=== PATIENT | male | born 1990 | race Caucasian/White ===

== ENCOUNTER 2019-05-05 08:24 | Outpatient (CLI) | payer OTHER, BC, SELFPAY ==
--- NOTE | ~2019-05-05 | MR_ITS ---
EXAMINATION: MR knee LT wo con DATE: 05/05/2019 09:10 INDICATION: Left knee pain. TECHNIQUE: Magnetic resonance imaging (MRI) of the left knee was performed without intravenous contra st. Sequences included axial PD-weighted FS FSE, coronal PD-weighted FSE and PD-weighted FS FSE, sagi ttal PD-weighted FSE, and sagittal T2-weighted FS FSE. COMPARISON: Left knee radiographs 04/27/2019 FINDINGS: Medial compartment: Medial meniscus is normal. Medial compartment cartilage is normal. Lateral compartment: Lateral meniscus is discoid. Lateral compartment cartilage is normal. Patellofemoral compartment: There is patellar cartilage surface irregularity. Trochlear cartilage is normal. Ligaments and tendons: There is a complete tear of anterior cruciate ligament. Posterior cruciate ligament is normal. Medial collateral ligament is normal. There are changes of prior sprain of fibular collateral ligament luz acterized increased signal intensity proximally. There is mild patellar tendinopathy. Fluid: There is a small knee joint effusion. There is mild prepatellar and superficial infrapatellar bursiti s. IMPRESSION: 1. Complete tear of anterior cruciate ligament. 2. Mild patellar chondrosis. 3. Small knee joint effusion. Reviewed, dictated and finalized at location A. [facility]
== END 2019-05-05 08:25 | disposition home or self-care (01) ==
PROVIDERS: PCP Internal Medicine; Visit Provider Internal Medicine
DX: M25.562 Pain in left knee (principal)
CPT/HCPCS: 73721

== ENCOUNTER 2019-09-10 12:54 | Outpatient (RCR) | payer OTHER, SELFPAY ==
--- NOTE | 2019-09-10 14:07 | PTOPEVAL ---
Thank you for referring Michael Saenz to [facility]. Please review, sign, date and return this plan of care KRISHNA. I agree with and certify that the following plan of care is medically necessary. Referring Physician Date Admitting Provider: Attending Provider: PHYSICIAN NOT ON STAFF Referring Provider: *PT Outpatient Evaluation Start: 09/10/19 13:09 Freq: Status: Active Protocol: Document 09/10/19 13:09 PEPE (Rec: 09/10/19 13:34 PEPE [email or web address]) Therapy Assessment Status Assessment Status Assessment Status Evaluation Evaluation Information Problem Diagnosis left ACL repair Onset 09/07/19 Subjective Information Pt. reports that he initially Query Text:As Reported By Patient/ tore his ACL in February while Family at work. He reports he underwent surgery 3 days ago. He has not been bearing weight as of yet. He reports he did have a nerve block. He reports that pain is minimal currently. He reports 3/10 knee pain. He states that his goal is to return to work and return to walking normal. Prior Level of Function Activity Level (Last 3 Months) Occupation landscaping, [employer] Right Activity of Daily Living Ability Independent Indoor/Home Mobility Independent Community Mobility Independent Stairs Ability Independent Functional Cognition (Planning, Shopping Independent , Taking Medications) Cooking Yes Cleaning Yes Laundry Yes Shopping Yes Driving Yes Pain Assessment Pain Scale Pain Scale Used Numeric (1 - 10) Self Report Pain Assessment Left Knee(s) Reported Pain Level 3 Pain Score Pain Score 3: Self Report Lower Extremity Range of Motion General Lower Extremity Range of Motion Gross Lower Extremity Range of Motion left knee AROM 0-56 degrees Comments Lower Extremity Muscle Strength Testing General Lower Extremity Strength Gross Lower Extremity Strength left hip flexion 4-/5, left hip abduction 3+/5, left knee flexion 3-/5, left knee extension 3-/5, left ankle dorsiflexion 5/5 Extremity Circumference Assessment Circumference Assessment Location Left Site Descriptor ([place]) knee j
--- NOTE | 2019-09-21 16:06 | PCPTNOTE ---
09/21/19 Mr. Saenz presents to therapy this date 2 weeks out from his L ACL reconstruction. He is progressing well with regards to his ROM and ambulation thus far. He now presents with 0-116 degrees AROM L knee mobility. He rates his pain a 4/10 in the L knee this date, and is still under precautions to use a brace on the L knee for ambulation for at least 4 more weeks. He presents with improving quadriceps strength in the L LE this date, but still displays a 5 degree extension lag during SLR performance of the L LE. He ambulates with decreased heel contact of the L LE, decreased atilio/speed, and hesitance during turning. Due to the nature of his injury, surgery performed, increased time post-injury waiting for surgery to be performed (due to covid), and prior level work requirements, he would do well to continue skilled PT for his remaining 8 visits per the initial POC with focus on his ability to return to full work performance and duties when medically cleared. Please feel free to call or email our facility with any additional questions regarding Mr. Saenz's case. Thank you, Robert Higuera DPT
--- NOTE | 2019-10-16 10:46 | PCPTNOTE ---
Mr. Saenz presents to skilled PT this date with increased pain and a sensation of instability in the L knee for about 2 weeks. He has been experiencing these symptoms since the progression to phase 2 of his post-op protocol. Prior to phase 2, Mr. Saenz attained full mobility and adequate strength of the quadriceps to begin closed chain strengthening exercises. However, after progression to phase 2, he began having severe pain (8/10), decreased rom (2-107), and instability while walking (even in his brace). He was regressed in exercises and activities for 2 weeks, and has been responding well with return of normal rom and ambulation mechanics. However, he still presents with swelling and pain in the L knee. This date he presents with improvements in his mobility achieving 0-120 degrees AROM L knee mobility, 1cm girth increase of the L knee jt line compared to the R knee jt line, and deeper squat tolerance/performance. Due to his initial symptoms as few weeks ago, it was suggested he follow up with surgeon's office to evaluate stability and adherence of L ACL reconstruction. Thank you for including our office in the care of Mr. Saenz. Please feel free to contact me with any further questions concerning Mr. Saenz or any other patient/case. Sincerely, Robert Higuera DPT [facility] [phone]
--- NOTE | 2019-10-19 15:53 | PTOPEVAL ---
Thank you for referring Michael Saenz to [facility]. Please review, sign, date and return this plan of care KRISHNA. I agree with and certify that the following plan of care is medically necessary. Referring Physician Date Admitting Provider: Attending Provider: PHYSICIAN NOT ON STAFF Referring Provider: *PT Outpatient Evaluation Start: 09/10/19 13:09 Freq: Status: Active Protocol: Document 10/19/19 15:15 PEPE (Rec: 10/19/19 15:53 PEPE [email or web address]) Therapy Assessment Status Assessment Status Assessment Status Re-evaluation Evaluation Information Problem Diagnosis s/p left ACL reconstruction Onset 09/07/19 Subjective Information Pt. reports that his swelling Query Text:As Reported By Patient/ his decreasing. Family Pain Assessment Pain Scale Pain Scale Used Numeric (1 - 10) Self Report Pain Assessment Left Knee(s) Reported Pain Level 2 Lowest Pain Intensity 2 Greatest Pain Intensity 3 Pain Score Pain Score 2: Self Report Lower Extremity Range of Motion General Lower Extremity Range of Motion Gross Lower Extremity Range of Motion Pt. demonstratse 0-126 degrees Comments left knee AROM Lower Extremity Muscle Strength Testing General Lower Extremity Strength Gross Lower Extremity Strength bialteral hip flexion 5/5, right hip abduction 4+/5, left hip abduction 5/5, right knee flexion 5/5, left knee flexion 4+/5, right knee extension 5/5, left knee extension 4+/5, bilateral ankle dorsiflexion 5/5 Pt. completes single limb leg press test for 1 rep max with 380# on right and 280# on left . Palpation Assessment Palpation Palpation Palpable edema is noted around the area of the left patellofemoral jt. Gait Assessment Gait Assessment Additional Ambulation Comments Pt. ambulates without an AD and no longer donning knee support. He demonstrates slightly decreased left stance time compared to the right. PT Clinical Summary Clinical Summary Protocol: PTEVCODE PT Clinical Summary Pt. has demosntrated progress in regards to strength and ROM . He continues to be limited in strength at the left l.e.
--- NOTE | 2019-11-22 07:19 | PTOPEVAL ---
Thank you for referring Michael Saenz to [facility].? The patient is scheduled to be seen for therapy? ____x/week for ___ weeks. Please review, sign, date and return this plan of care KRISHNA. I agree with and certify that the following plan of care is medically necessary. Referring Physician Date Admitting Provider: Attending Provider: PHYSICIAN NOT ON STAFF Referring Provider: *PT Outpatient Evaluation Start: 09/10/19 13:09 Freq: Status: Active Protocol: Document 11/15/19 17:00 PEPE (Rec: 11/22/19 07:19 PEPE [email or web address]) Therapy Assessment Status Assessment Status Assessment Status Evaluation Evaluation Information Problem Diagnosis s/p left ACL reconstruction Onset 09/07/19 Subjective Information Pt. states that he has Query Text:As Reported By Patient/ returned to work. He states Family that he is on light duty but does not feel limited. He reports that he can complete all required work related duties without complication. He reports that he continues to exercise daily at home. Pt . states that he will return to his doctor in 2-3 weeks, but feels that he is ready for discharge. Pain Assessment Self Report Self Report Pain Level 0 Pain Score Pain Score 0: Self Report Lower Extremity Range of Motion General Lower Extremity Range of Motion Gross Lower Extremity Range of Motion left knee AROM= 0-125 Comments Lower Extremity Muscle Strength Testing General Lower Extremity Strength Gross Lower Extremity Strength Pt. completes single limb leg press test with max weight of 380# on both right and left. left knee flexion strength grades 5/5 and left knee extension strength grades 5/5 Gait Assessment Gait Assessment Additional Ambulation Comments Pt. ambulates over level surface without deviation. General Exercise General Exercises Exercise Description -lunges x 20 Query Text:Record Sets, Reps, -sidestepping with theraband x Resistance, and Position 25' x 4 reps -lateral step ups x 20 -forward step ups x 20 -step downs x 20 -squat side lunges x 20 PT Clinical Summary Clinical Summary Protocol: PTEVCODE PT Clinical Summary Pt. demonstrates no
== END 2019-11-15 18:00 | disposition home or self-care (01) ==
LOC: CHSPT 12:54
DX: S83.512D Sprain of anterior cruciate ligament of left knee, subsequent encounter (principal)
CPT/HCPCS: 97016; 97110; 97112; 97161; 97530

== ENCOUNTER 2019-12-05 08:14 | Outpatient (RCR) | payer OTHER, SELFPAY ==
--- NOTE | 2019-12-05 11:20 | PTOPEVAL ---
Thank you for referring Michael Saenz to [facility].? The patient is scheduled to be seen for therapy? ____x/week for ___ weeks. Please review, sign, date and return this plan of care KRISHNA. I agree with and certify that the following plan of care is medically necessary. Referring Physician Date Admitting Provider: Attending Provider: PHYSICIAN NOT ON STAFF Referring Provider: *PT Outpatient Evaluation Start: 12/05/19 08:15 Freq: Status: Active Protocol: Document 12/05/19 08:16 PEPE (Rec: 12/05/19 09:39 PEPE [email or web address]) Therapy Assessment Status Assessment Status Assessment Status Re-evaluation Evaluation Information Problem Subjective Information Pt. reports that he has Query Text:As Reported By Patient/ returned to work full duty. Family He states that he still has concern with walking over uneven terrain but has no complication with level terrain. He states that his biggest concern is reinjury if he were to step into a hole. He also notes some stiffness with described flexion, but only affects him with kneeling activities. Pain Assessment Self Report Self Report Pain Level 0 Pain Score Pain Score 0: Self Report Lower Extremity Range of Motion General Lower Extremity Range of Motion Gross Lower Extremity Range of Motion right knee AROM= 0-135 Comments left knee AROM= 0-128 Lower Extremity Muscle Strength Testing General Lower Extremity Strength Gross Lower Extremity Strength Pt. demonstrates continued indication of slight weakness of the left l.e. compared to the right as noted by inability to maintain SLS on the left compared to the right on uneven terrain. Gait Assessment Gait Assessment Additional Ambulation Comments Pt. ambulates over level surface without deviation. He is able to navigate steps with reciprical pattern. General Exercise General Exercises Exercise Description -rapid alternating HS curls 3# Query Text:Record Sets, Reps, x 3 minutes Resistance, and Position -eliptical x 10 minutes level 5 -BOSU squats on firm side x 20 -single limb mini squats x 20 -single limb lunge squats x 20
== END 2019-12-28 08:46 | disposition home or self-care (01) ==
LOC: CHSPT 08:14
PROVIDERS: PCP Internal Medicine
DX: S83.512D Sprain of anterior cruciate ligament of left knee, subsequent encounter (principal)
CPT/HCPCS: 97110; 97530

== ENCOUNTER 2020-03-12 13:53 | Outpatient (CLI) | payer BC, SELFPAY ==
[2020-03-12 14:43] LABS: SARS-CoV-2 Ag Negative (Negative)
== END 2020-03-12 13:54 | disposition home or self-care (01) ==
LOC: CHSLAB 13:56
PROVIDERS: PCP Internal Medicine; Visit Provider Internal Medicine
DX: Z20.828 Contact with and (suspected) exposure to other viral communicable diseases (principal)
CPT/HCPCS: 87426

== ENCOUNTER 2024-11-16 08:34 | Emergency (ER) | payer OTHER, SELFPAY ==
--- OUTSIDE RECORDS SUMMARY | 2024-11-16 08:38 | XMS_ITS | Clinical Summary ---
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 Gender Identity Not on file Sexual Orientation Not on file Plan of Treatment Health Maintenance Due Date Last Done Comments Annual Physical 1994 Hepatitis C 2009 DTaP, Tdap and Td Vaccines ( 1 - Tdap) 2010 Hepatitis B Vaccines (1 of 3 - 19+ 3-dose series) 2010 HPV Vaccines (1 - 3-dose SCD M series) 2018 COVID-19 Vaccine ( - 2023-2 5 season) 2023 Meningococcal B Vaccine Aged Out No l onger eligible based on patient's age to complete this topic Meningococcal Vaccine Aged Out No linda jackeline eligible based on patient's age to complete this topic Pneumococcal Vaccine: Pediat rics (0 to 5 Years) and At-Risk Patients (6 to 49 Years) Aged Out No longer eligible b ased on patient's age to complete this topic RSV Immunizations Under 20 Months Aged Out No longer eligible based on patient's age to complete this topic
--- OUTSIDE RECORDS SUMMARY | 2024-11-16 08:38 | XMS_ITS | Clinical Summary ---
Author Organization [facility] Care Team Providers Care Power Press Operator Name Role Phone Unavailable Primary Care Provider Unavailabl e Social History Tobacco Use Types Packs/Day Years Used Date Smoking Tobacco: Never Assessed Sex and Gender Information Value Date Recorded Sex Assigned at Not on file Legal Sex Male 10:50 PM CDT Gender Identity Not on file Sexual Orientation Not on file Plan of Treatment Not on file
--- OUTSIDE RECORDS SUMMARY | 2024-11-16 08:38 | XMS_ITS | Clinical Summary ---
Author Organization [facility] Address [address] [place] [address] Care Team Providers Care Blast Furnace Checker Name Role Phone Wyatt Daugherty MD Primary Care Provider + [phone] Allergies No known active allergies Medications oxyCODONE-aceta minophen (PERCOCET) 5-325 mg per tabletIndicatio ns:Pain TAKE 1-2 TABLETS EVERY 6 HOURS NEEDED FOR PAIN 40 tablet 0 Active Additional Information Patient not taking.Reported on 03/04/2020 HYDROcodone-minoo taminophen (NORCO) 5-325 mg per tabletIndicatio ns:Pain TAKE 1-2 TABLETS EVERY 6 HOURS NEEDED FOR PAIN 15 tablet 0 Active Additional Information Patient not taking.Reported on 03/04/2020 Active Problems Problem Noted Date Diagnosed Date Injury of left knee 06/21/2019 Acute pain of left knee 06/21/2019 Left anterior cruciate ligament tear 06/21/2019 Immunizations Immunization Administration Dates Next Due DTP 06/08/1996, 3,1991,1991,0 1991 Hep A, Pediatric 09/30/2005 Hep B, Adolescent or Pediatric 11/22/2001,2000,06/08/1996 HiB 10/07/1992,1991,1991 ,1991 IPV 06/08/1996, 3,1991,1991,0 1991 MMR 06/08/1996,10/07/1992 Meningococcal C Conjugate 09/30/2005 Td, adsorbed 02/01/2003 Tdap 03/02/2019,09/30/2005 Surgical History Surgery Date Site/Laterality Comments TONSILLECTOMY 04/04/1999 - 04/03/2000 Bilateral Medical History Medical History Date Comments Covid-19 09/04/2019 COVID test done 09/04/2019-->negative 09/05/2019 0825 EE Hyperlipidemia borderline, just monitoring at this time Family History Medical History Relation Name Comments Clotting disorder Father Diabetes Father Gout Father Heart disease Father Hypertension Father Kidney disease Father Diabetes Mother Stroke Mother Relation Name Status Comments Father Mother Social History Tobacco Use Types Packs/Day Years Used Date Smoking Tobacco: Every Day Cigarettes 0.5 15.6 Started: 2009 Smokeless Tobacco: Never Alcohol Use Standard Drinks/Week Comments Yes 0 (1 standard drink = 0.6 oz pur e alcohol) 1-2x/month Personal Safety Answer Date Recorded Getting School Help Needed Not on file 06/16 Sex and Gender Information Value Date Recorded Sex Assigned at Not on file 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 Gender Identity Not on file Sexual Orientation Not on file Obstetrics History Last Filed Vital Signs Vital Sign Reading Time Taken Comments Blood Pressure 117/69 09/07/2019 12:00 PM CDT Pulse 85 09/07/2019 12:05 PM CDT Temperature 36.2 C (97.2 F) 09/07/2019 11:50 AM CDT Respiratory Rate 18 09/07/2019 12:05 PM CDT Oxygen Saturation 96% 09/07/2019 12:05 PM CDT Inhaled Oxygen Concentration - - Weight 116.1 kg (256 lb) 03/04/2020 3:10 PM MANAGER BANK Height 180.3 cm (5' 11) 03/04/2020 3:10 PM MANAGER BANK Body Mass Index 35.7 03/04/2020 3:10 PM MANAGER BANK Plan of Treatment Not on file Medical Devices Implanted Type Area Derrick Boat Lever Operator Device Identifier Shelf Expiration Date Model / Serial / Lot [employer] [id number] Tightrope Acl Right Device Fixation Titanium Uhmwpe Sterile Latex Free - [id number] Implanted:Qty: 1 on 09/07/2019 by Natanael Parsons IV, MD at [facility] Left: Knee [employer] 02/02/2024 [id number] / / [id number] [employer] Ar-[id number]-09 Screw Fastthread Biocomposite Interference 9mm X 30mm - [id number] Implanted:Qty: 1 on 09/07/2019 by Natanael Parsons IV, MD at [facility] Left: Knee [employer] 02/01/2021 AR-4030C-09 / / [id number] Insurance [employer] Top[employer] KIERSTEN HOOPER Care Teams Blast Furnace Checker Relationship Specialty Start Date End Date Wyatt Daugherty MD [address] [place] [address] PCP - General Internal Medicine 05/15/19
[2024-11-16 08:39] VITALS: BP 136/87; PULSE 92; RESP 16; TEMP 36.6; O2SAT 97
--- NOTE | 2024-11-16 08:43 | ED_ITS ---
HPI - Animal Bite General Chief Complaint: Animal Bite Stated Complaint: dog bite Time Seen by Provider: 11/16/24 08:43 Source: patient Mode of arrival: ambulatory Limitations: no limitations History of Present Illness HPI narrative: patient is a 34-year-old male with a left hand dog bite prior to arrival. He was sitting pending his friend's dog and after he pulled his hand away from petting the dog it wanted more attention so it bit his left hand. The dog was pulled away from the hand and left a laceration on the left thumb. Also some puncture wounds on the other part of the hand. Tetanus shot not up-to-date. Pain is sharp. No other injuries. Dog is up-to-date on shots. This was a provoked event. complaint: animal bite and animal-related injury Onset (ago): minute(s) ( Thirty) Animal: dog Description of animal: household pet Mechanism: bite Location - Extremities: Left: hand ( 1 laceration and 3 puncture wounds) Pain description: sharp Severity scale (1-10): 5 Context: playing with animal and provoked Associated symptoms: none Treatments prior to arrival: wound dressing(s) Related Data Patient tetanus UTD: No Home Medications ?Medication ?Instructions ?Recorded ?Confirmed ?Last Taken ?Type amoxicillin 875 mg-potassium 1 tablet PO Q8H 11/16/24 11/16/24 Unknown History clavulanate 125 mg tablet Allergies Allergy/AdvReac Type Severity Reaction Status Date / Time No Known Allergies Allergy Unverified 11/16/24 08:54 Review of Systems Review of Systems: All systems reviewed & are unremarkable except as noted in HPI and below Constitutional: Constitutional: Reports no additional constitutional complaints Eyes: Eyes: Reports no additional eye complaints ENT: Reports system reviewed and no additional complaints, except as documented Cardiovascular: Cardiovascular: Reports no additional cardiovascular complaints Respiratory: Respiratory: Reports no additional respiratory complaints Gastrointestinal: Gastrointestinal: Reports no additional gastrointestinal complaints Genitourinary: Genitourinary: Reports no additional male genitourinary complaints Musculoskeletal: Musculoskeletal: Reports no additional musculoskeletal complaints Integumentary/Breasts: Skin/Breast: Reports system reviewed and no additional complaints, except as docu Neurologic: Reports system reviewed and no additional complaints, except as documented Psychiatric: Psychiatric: Reports no additional psychiatric complaints Endocrine: Endocrine: Reports no additional endocrine complaints Hematologic/Lymphatic: Hematologic/Lymphatic: Reports no additional hematologic/lymphatic complaints Allergic/Immunologic: Allergic/Immunologic: Reports no additional allergic/immunologic complaints Exam Const: General: healthy appearing Nutritional Appearance: well nourished Orientation/consciousness: patient oriented x3 HENMT: Head: normal to inspection Ears: external ears normal Face/Nose/Sinus: Normal external nose present Eyes: Conjunctivae: conjunctivae normal Pupils: Equal, round and reactive pupils present EOM: EOMs intact bilaterally Neck: Neck: normal visual inspection Chest: Chest palpation & inspection: normal inspection of the chest Resp: Effort & Inspection: normal respiratory effort, not labored and no retractions Auscultation: clear to auscultation bilaterally and no crackles Cardio: Rate: regular rate Rhythm: regular rhythm Heart sounds: no murmurs GI: Inspection: non-distended GI Palp: Yes Soft to palpation, Yes Tenderness to palpation present (GI) and No Guarding due to palpation present (GI) Auscultation: normal bowel sounds Back/Spine/Pelvis: Back: no CVA tenderness Skin: General skin exam: normal color, no jaundice and no pallor Wounds: wounds noted ( left hand thumb has 3 puncture wounds 2 in the thumb and 1 at the base) Other: there is a large laceration to the subcutaneous tissue at the thumb measuring 3 cm; no signs of infection Neuro: General: patient oriented x3, moves all extremities and no meningeal signs Extrem: General: normal to inspection Psych: Mental Status: mental status grossly normal Affect: normal affect Attitude: cooperative Course Vital Signs Vital signs: Vital Signs Temperature 36.6 C 11/16/24 08:39 Pulse Rate 92 11/16/24 08:39 Respiratory Rate 16 11/16/24 08:39 Blood Pressure 136/87 11/16/24 08:39 Pulse Oximetry 97 11/16/24 08:39 Oxygen Delivery Room Air 11/16/24 08:39 Temperature 36.6 C 11/16/24 08:39 Pulse Rate 92 11/16/24 08:39 Respiratory Rate 16 11/16/24 08:39 Blood Pressure 136/87 11/16/24 08:39 Pulse Oximetry 97 11/16/24 08:39 Oxygen Delivery Room Air 11/16/24 08:39 Procedures Other Procedure Procedure 1: Other Procedure: laceration repair 3 cm linear left thumb: Area was cleaned with chlorhexidine spray, area anesthetized with 6 cc lidocaine 1%, 4-0 nylon PS 3 use to make 3 simple sutures for approximation and partial closure due to large size of laceration and leaving big gaps between sutures for breathe ability, area clean with spray chlorhexidine, antibiotic ointment placed and a light bandage, procedure tolerated well without complications MDM - Animal Bite MDM Narrative Medical decision making narrative: patient is a 34-year-old male with a left hand dog bite prior to arrival. 3 cm linear laceration on the left thumb requires partial closure due to large size. Three puncture wounds will close on their own. Augmentin. Tetanus. [place]. Discharge Plan Discharge Clinical Impression: Bite by animal Dog bite Qualifiers: Encounter type: initial encounter Qualified Code(s): W54.0XXA - Bitten by dog, initial encounter Patient Disposition: Home Condition: Stable Instructions: Antibiotic Form, Animal Bite (ED) Additional Instructions: Please follow-up with the primary doctor next week. Please have stitches removed in the next 7 days. use antibiotic ointment on the areas once to twice a day and keep the area clean with soap water. Light simple bandage. Patient Language: Citizen Of [place] Prescriptions: New amoxicillin-pot clavulanate 875-125 mg tablet 1 tablet PO BID 10 Days Qty: 20 0RF hydrocodone-acetaminophen 5-325 mg tablet 1 tablet PO Q8H PRN (Reason: pain) Qty: 15 0RF No Action amoxicillin-pot clavulanate 875-125 mg tablet 1 tablet PO Q8H Follow-up/Referrals: UNKNOWN,DOCTOR [Primary Care Provider] - Time of Disposition: 09:13
[2024-11-16] MEDS: TETANUS,DIPHTHERIA,AC PERTUSSIS ADULT 0.5 ML (ADACEL) IM (09:01)
[2024-11-16] MEDS: HYDROcodone/acetaminophen (*CRX) 5-325 MG TABLET 1 TAB PO (09:02)
[2024-11-16] MEDS: NEOMYCIN/POLYMYXIN/BACITRACIN OINTMENT PACKET 2 PACKET TOPICAL (09:03)
--- OUTSIDE RECORDS SUMMARY | 2024-11-16 09:10 | XMS_ITS | Clinical Summary ---
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
--- OUTSIDE RECORDS SUMMARY | 2024-11-16 09:10 | XMS_ITS | Clinical Summary ---
Author Organization 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 Gender Identity Not on file Sexual Orientation [...] 116.1 kg (256 lb) 03/04/2020 3:10 PM STOCK LIFTER Height 180.3 cm (5' 11) 03/04/2020 3:10 PM STOCK LIFTER Body Mass Index 35.7 03/04/2020 3:10 PM STOCK LIFTER Plan of Treatment Not on file Medical Devices Implanted Type Area Prospecting Driller Helper Device Identifier Shelf Expiration Date Model / Serial / Lot [employer] [id number] Tightrope Acl Right Device Fixation Titanium Uhmwpe Sterile Latex Free - [id number] Implanted:Qty: 1 on 09/07/2019 by Natanael Parsons IV, MD at [facility] Left: Knee [employer] 02/02/2024 AR-[id number] / / [id number] [employer] Ar-[id number]-09 Screw Fastthread Biocomposite Interference 9mm X 30mm - [id number] Implanted:Qty: 1 on 09/07/2019 by Natanael Parsons IV, MD at [facility] Left: Knee [employer] 02/01/2021 AR-4030C-09 / / [id number] Insurance [employer] KIERSTEN HOOPER Care Teams Legal Document Specialist Relationship Specialty Start Date End Date Wyatt Daugherty MD [address] [place] [address] PCP - General Internal Medicine 05/15/19
--- OUTSIDE RECORDS SUMMARY | 2024-11-16 09:10 | XMS_ITS | Clinical Summary ---
Author Organization [facility] Care Team Providers Care Nail Polish Brush Machine Feeder Name Role Phone Unavailable Primary Care Provider [...]
--- NOTE | 2024-11-16 09:14 | PC.NURSE ---
ANIMAL BITE REPORT FAXED TO [facility] AT [id number]
[2024-11-16 09:50] VITALS: BP 128/85; PULSE 88; RESP 20; O2SAT 98
== END 2024-11-16 09:50 | disposition home or self-care (01) ==
PROVIDERS: Emergency Provider Emergency Medicine
DX: S61.452A Open bite of left hand, initial encounter (principal); W54.0XXA Bitten by dog, initial encounter; Z23 Encounter for immunization
CPT/HCPCS: 12001; 90471; 90715; 99283; A9270